=== PATIENT | female | born 1975 | race Two or more races ===

== ENCOUNTER 2021-09-05 18:41 | Emergency (ER) | payer SELFPAY ==
[~2021-09-05] VITALS: Ht 154.9 cm; Wt 76.2 kg
[2021-09-05 18:43] VITALS: BP 121/73
[2021-09-05] MEDS ORDERED: NEOMYCIN-BACITRACIN-POLYM UNITDOSE PKG TOP OINT TOP ONE (21:30)
[2021-09-05] MEDS ORDERED: cefTRIAXone SOD 1,000 MG VL IM ONE (22:15)
== END 2021-09-05 22:55 | disposition home or self-care (01) ==
LOC: ER 18:42
DX: S61.511A Laceration without foreign body of right wrist, initial encounter (principal); W26.9XXA Contact with unspecified sharp object(s), initial encounter; Y93.G1 Activity, food preparation and clean up; Y92.89 Other specified places as the place of occurrence of the external cause; Y99.8 Other external cause status
CPT/HCPCS: 12002; 73110; 96372; 99283; J0696